=== PATIENT | male | born 1970 | race Caucasian/White ===

== ENCOUNTER 2017-08-28 10:03 | Emergency (ER) | payer SELFPAY ==
[~2017-08-28] VITALS: Ht 175.3 cm; Wt 84.1 kg
[2017-08-28] MEDS ORDERED: ETOMIDATE 2 MG/ML 10 ML VIAL IV ONE (10:06)
[2017-08-28] MEDS ORDERED: SUCCINYLCHOLINE CHLORIDE 20 MG/ML 10 ML VIAL IM ONE (10:06)
[2017-08-28] MEDS ORDERED: LORazepam 2 MG/ML VIAL IVP ONE (10:45)
[2017-08-28] MEDS ORDERED: SODIUM CHLORIDE 0.9% 1,000 ML IV ONE (10:45)
[2017-08-28 10:59] LABS: ALANINE AMINOTRANSFERASE 29 U/L (12-78); ALKALINE PHOSPHATASE 91 U/L (46-116); ANION GAP 17 mmol/L (8-16); ASPARTATE AMINOTRANSFERASE 29 U/L (15-37); BASOPHILS % (AUTO) 0.9 % (0.0-2.0); BILIRUBIN,TOTAL 0.5 mg/dL (0.1-1.0); CALCIUM, TOTAL 8.8 mg/dL (8.8-10.5); CARBON DIOXIDE 22 mmol/L (22-29); CHLORIDE 99 mmol/L (98-107); CREATININE 1.21 mg/dL (0.60-1.30); EOSINOPHILS % (AUTO) 0.1 % (1.0-6.0); GLOMERULAR FILTR. RATE CALC > 60 mL/min (>60); GLUCOSE,RANDOM 222 mg/dL (70-110); HEMATOCRIT 48.7 % (41-53); HEMOGLOBIN 15.7 g/dL (13.5-17.5); LIPASE 63 U/L (73-393); LYMPHOCYTES # (AUTO) 2.2 K/uL (1.0-4.8); LYMPHOCYTES % (AUTO) 10.4 % (22.0-44.0); MEAN CORPUSCULAR HEMOGLOBIN 21.7 pg (26.0-34.0); MEAN CORPUSCULAR HGB CONC 32.3 G/dL (31.0-37.0); MEAN CORPUSCULAR VOLUME 67 fL (80-100); MONOCYTES # (AUTO) 1.7 K/uL (0.1-1.0); MONOCYTES % (AUTO) 7.8 % (2.0-9.0); NEUTROPHILS # (AUTO) 17.3 K/uL (1.8-7.7); NEUTROPHILS % (AUTO) 80.8 % (40.0-70.0); PLATELET COUNT (AUTO) 347 K/uL (150-450); RED BLOOD CELL COUNT(AUTO) 7.25 MIL/uL (4.50-5.90); RED CELL DISTRIBUTION WIDTH 16.3 % (11.5-14.5); SODIUM SERUM 138 mmol/L (136-145); TOTAL PROTEIN, SERUM 8.4 g/dL (6.4-8.2); UREA NITROGEN, BLOOD 13 mg/dL (7-18)
[2017-08-28] MEDS ORDERED: PROPOFOL 1000 MG/ISO-OSM 100 ML IV PRN (11:00)
[2017-08-28 11:04] LABS: POTASSIUM 2.8 mmol/L (3.5-5.1)
[2017-08-28 11:06] LABS: AMMONIA 24 umol/L (11-32)
[2017-08-28 11:10] LABS: ABG METHEMOGLOBIN 0.4 % (0.0-1.5); SOURCE, BLOOD GAS ARTERIAL; TEMPERATURE, FAHRENHEIT, BG 98.6 FAHREN (96.0-98.6)
[2017-08-28 11:14] LABS: TROPONIN I < 0.02 ng/mL (0.00-0.05)
[2017-08-28 11:14] LABS: ABG A-A DIFF O2 383.4 mmHg (10-20.0); ABG BASE EXCESS -2.9 mmol/L (-2.0-3.0); ABG CARBOXYHEMOGLOBIN 0.7 % (0.0-1.5); ABG HCO3 22.5 mmol/L (22.0-26.0); ABG OXYGEN CONTENT 21.4 mL/dL (15.0-23.0); ABG OXYGEN SATURATION 98.9 % (95.0-98.0); ABG OXYHEMOGLOBIN 97.8 % (94.0-100.0); ABG PCO2 37 mmHg (35-45); ABG PH 7.389 (7.35-7.450); ABG TOTAL HEMOGLOBIN 15.1 G/dL (12.0-18.0); O2 DEVICE,BLOOD GAS VENTILATOR (ROOM AIR); PEEP,BG 5 cm H2O; PO2, ARTERIAL BG 292.2 mmHg (88.0-96.0); SITE, BLOOD GAS LFT RADIAL; VT, ABG 500 ml
[2017-08-28] MEDS ORDERED: POTASSIUM CHL 20 MEQ/0.9% NS 1,000 ML IV ONE (11:15)
[2017-08-28 11:34] LABS: PROTHROMBIN TIME 10.1 SEC (9.4-11.6)
[2017-08-28] MEDS ORDERED: LABETALOL HCL 5 MG/ML 20 ML VIAL IVP ONE (11:45)
[2017-08-28] MEDS ORDERED: SODIUM CHLORIDE 0.9% 100 ML ONE (11:45)
[2017-08-28] MEDS ORDERED: IOVERSOL 350 MG/ML 100 ML VIAL ONE (11:45)
[2017-08-28 11:53] LABS: LACTIC ACID 4.7 mmol/L (0.4-2.0)
[2017-08-28 11:55] LABS: B-TYPE NATRIURETIC PEPTIDE 59 pg/mL (0-100)
[2017-08-28 12:11] LABS: AMPHET/METH SCREEN,URINE POSITIVE (NEGATIVE); BARBITURATE SCREEN, URINE NEGATIVE (NEGATIVE); BENZODIAZEPINES SCREEN,URINE NEGATIVE (NEGATIVE); CANNABINOID SCREEN,URINE NEGATIVE (NEGATIVE); COCAINE SCREEN,URINE NEGATIVE (NEGATIVE); METHADONE SCREEN, URINE NEGATIVE (NEGATIVE); OPIATE SCREEN,URINE NEGATIVE (NEGATIVE)
[2017-08-28 12:15] LABS: PHENCYCLIDINE SCREEN,URINE NEGATIVE (NEGATIVE)
[2017-08-28 12:26] LABS: APPEARANCE,URINE Y (CLEAR); PH,URINE 6.5 (5.0-8.0)
[2017-08-28 12:27] LABS: BILIRUBIN,URINE NEGATIVE (NEGATIVE); GLUCOSE, URINE (UA) 250 mg/dL (NEGATIVE); KETONES,URINE 15 mg/dL (NEGATIVE); LEUKOCYTE ESTERASE ,URINE NEGATIVE (NEGATIVE); NITRATE,URINE NEGATIVE (NEGATIVE); OCCULT BLOOD,URINE MODERATE (NEGATIVE); PROTEIN,URINE SEE CONFIRM (NEGATIVE); UROBILINOGEN,URINE 0.2 mg/dL (<=1.0)
[2017-08-28] MEDS ORDERED: FOSPHENYTOIN SODIUM 750 MGPE in SODIUM CHLORIDE 0.9% 100 ML IV ONE (12:30)
[2017-08-28] MEDS ORDERED: NiCARDipine HCL 50 MG in DEXTROSE 5%-WATER 230 ML IV PRN (12:30)
[2017-08-28 12:33] LABS: SULFOSALICYLIC ACID,URINE 3+ (Negative)
[2017-08-28 12:34] LABS: BACTERIA,URINE Rare /HPF (None Seen); SQUAMOUS EPITHELIAL CELL,UR Few /LPF (None Seen)
[2017-08-28] MEDS ORDERED: NICARDipine 20 MG/DEXT,ISO-OSM 200 ML IV PRN (12:45)
[2017-08-28 14:00] VITALS: BP 124/84
== END 2017-08-28 15:02 | disposition short-term general hospital (02) ==
LOC: EMS 10:05
DX: I60.9 Nontraumatic subarachnoid hemorrhage, unspecified (principal)
CPT/HCPCS: 31500; 36415; 70450; 70496; 71045; 80053; 80307; 81001; 82140; 82805; 83605; 83690; 83880; 84484; 85025; 85610; 93005; 96365; 96374; 96375; 99291; G0480; J0330; J2060; J2704; J3480; J3490 ×2; J7030; J7050; Q2009; Q9967; 94002